=== PATIENT | male | born 1995 | race Caucasian/White ===

== ENCOUNTER 2018-03-14 14:15 | Emergency (ER) | payer OTHER ==
[2018-03-14 14:22] VITALS: BP 146/92; PULSE 112; TEMP 99.1; BMI 36.5
--- NOTE | 2018-03-14 14:23 | PDOC ---
History of Present Illness - General History Source: Patient Exam Limitations: No Limitations <Zainab Reina - Last Filed: 03/14/18 14:40> - History of Present Illness Initial Comments: 03/14/18 15:02 The patient is a 22 year old male with no significant PMH who presents to the emergency department complaining of a burn to the left hand. The patient states he was powerwashing and touched the muffler region causing him to sustain a burn. The patient denies any blistering or fluid drainage. The patient denies chest pain, shortness of breath, headache and dizziness. Denies fever, chills, nausea, vomit, diarrhea and constipation. Denies dysuria, frequency, urgency and hematuria. Allergies: NKA Past surgical history: None reported. Social history: No reported alcohol, drug, or cigarette use. <Coco Christian - Last Filed: 03/14/18 15:05> - General Chief Complaint: Burn Stated Complaint: LEFT HAND BURN Time Seen by Provider: 03/14/18 14:20 Past History - Past Medical History COPD: No Other medical history: PT DENIES - Suicide/Smoking/Psychosocial Hx Smoking History: Never smoked Hx Alcohol Use: (occasional) <Zainab Reina - Last Filed: 03/14/18 14:40> <Coco Christian - Last Filed: 03/14/18 15:05> - Past Medical History Allergies/Adverse Reactions: Allergies Allergy/AdvReac Type Severity Reaction Status Date / Time No Known Allergies Allergy Verified 03/14/18 14:18 Home Medications: Ambulatory Orders NK [No Known Home Medication] 03/14/18 *Physical Exam - Vital Signs Last Vital Signs Temp Pulse Resp BP Pulse Ox 99.1 F 112 H 20 146/92 98 03/14/18 14:15 03/14/18 14:15 03/14/18 14:15 03/14/18 14:15 03/14/18 14:15 <Zainab Reina - Last Filed: 03/14/18 14:40> - Vital Signs Last Vital Signs Temp Pulse Resp BP Pulse Ox 99.1 F 112 H 20 146/92 98 03/14/18 14:15 03/14/18 14:15 03/14/18 14:15 03/14/18 14:15 03/14/18 14:15 - Physical Exam Comments: 03/14/18 15:00 GENERAL: The patient is in no acute distress. HEAD: Normal with no signs of trauma. EYES: PERRLA, EOMI, sclera anicteric, conjunctiva clear. ENT: Ears normal, nares patent, oropharynx clear without exudates. Moist mucous membranes. NECK: Normal range of motion, supple without lymphadenopathy, JVD, or masses. LUNGS: Breath sounds equal, clear to auscultation bilaterally. No wheezes, and no crackles. HEART:Regular rate and rhythm, normal S1 and S2 without murmur, rub or gallop. ABDOMEN: Soft, nontender, normoactive bowel sounds. No guarding, no rebound. No masses palpable. EXTREMITIES: Normal range of motion, no edema. No clubbing or cyanosis. No erythema, or tenderness. NEUROLOGICAL: Cranial nerves II through XII grossly intact. Normal speech. No focal neurological deficits. MUSCULOSKELETAL: Back non-tender to palpation, no CVA tenderness SKIN: Warm, Dry, normal turgor (+) 2.5 cm x 2.5 cm wound on the left hand. Center of wound has a screw imprint. No erythema, no open skin, no drainage. <Coco Christian - Last Filed: 03/14/18 15:05> Medical Decision Making - Medical Decision Making 03/14/18 14:40 Trey is a 22 yo RHD m who presents to the ER with a complaint of burn to the left thenar eminence He was powerwashing and apparently touched the motor region He sustained a burn due to hot metal/air No blistering noted ON examination: 2.5 cm x 2 cm region of skin changed noted Center of the wound appears to be in inprint of a screw Skin is sensate No erythema No open skin or drainage most likely 1st degree burn Will: Discharge to home Will ask pt to apply bacitracin Will ask pt to take motrin for pain Monitor for progression of burn Should follow up with [facility] <Zainab Reina - Last Filed: 03/14/18 14:40> *DC/Admit/Observation/Transfer - Discharge Dispostion Decision to Admit order: No <Zainab Reina - Last Filed: 03/14/18 14:40> - Attestations Scribe Attestion: 03/14/18 15:05 Documentation prepared by Coco Christian, acting as medical auditor for Zainab Reina MD. <Coco Christian - Last Filed: 03/14/18 15:05> Diagnosis at time of Disposition: Superficial burn of palm of left hand Qualifiers: Encounter type: initial encounter Qualified Code(s): T23.152A - Burn of first degree of left palm, initial encounter - Discharge Dispostion Disposition: HOME Condition at time of disposition: Stable - Patient Instructions Printed Discharge Instructions: How to Take Care of a Burn, DI for Braxton, Minor Braxton (Alternative Therapy) Additional Instructions: Trey Thanks for choosing [facility] for your medical needs You can continue using ice as needed Please take motrin for pain Please apply Bacitracin three times per day to your hand Please take pictures daily and monitor for any progression of your burn If you notice redness, drainage, warmth (Signs of an infection), please return to the ER Please be sure to follow up with the [facility]
[2018-03-14] MEDS ORDERED: IBUPROFEN 600 MG TABLET (FP) PO ONE ×2 (14:43→15:21)
[2018-03-14] MEDS ORDERED: DIPHTH,PERTUSS(ACELL),TET 0.5 ML DISP.SYRIN IM ONE (15:21)
== END 2018-03-14 15:30 | disposition home or self-care (01) ==
LOC: FER 14:15
CPT/HCPCS: 90715; 99282-25